=== PATIENT | male | born 1995 | race Caucasian/White ===

== ENCOUNTER 2022-09-14 11:43 | Emergency (ER) | payer OTHER, SELFPAY ==
[2022-09-14 12:01] VITALS: BP 138/85; PULSE 62; RESP 18; TEMP 36.8; O2SAT 99; BMI 30.7
[2022-09-14] MEDS: DEXAMETHASONE 10 MG/ML VIAL PO (12:17)
[2022-09-14] MEDS: FAMOTIDINE 20 MG TABLET PO (12:17)
--- NOTE | 2022-09-14 12:25 | ED_ITS ---
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 Patient states that he [place] the window was down and his arm was stung by a wasp. He states he had to pull it out and the head looked like a wasp head he is confident it was not a bee. He states that initially there was a raised area or welt in the center and shares a picture of this but states that it expanded out and the redness has increased to the point where it is now a large area of redness around the sting site. He states that it feels like there is a burning sensation in his forearm just underneath the skin around the area of the sting. He has taken 1 Benadryl but no other medications. Previously he has had localized similar reactions after being stung by bees, he has also had hives develop on his upper body with itching due to an unknown cause not from a bee sting the latter has happened multiple times and he says he has been seen in the emergency department for this and received IV steroid medicine due to significant hives and itching. He states he has never had any airway symptoms such as swelling of his tongue mouth or throat or lips or wheezing or shortness of breath, he also states he is never had any gastrointestinal distress such as vomiting nausea or diarrhea associated with allergic reactions. Currently he states he feels well he does not feel he is having any airway swelling tongue tingling, throat tightness, shortness of breath, respiratory symptoms or any GI symptoms. He has not noticed any itching or hives either. He denies any other complaints or concerns and states he would prefer not to be placed on prednisone unless absolutely necessary as it upsets his stomach. Related Data Allergies Allergy/AdvReac Type Severity Reaction Status Date / Time No Known Drug Allergies Allergy Verified 09/14/22 12:01 Review of Systems <Caitie Rhodes PA-C - Last Filed: 09/14/22 12:46> Review of Systems Narrative: See HPI Patient History <Caitie Rhodes PA-C - Last Filed: 09/14/22 12:46> Social History Smoking Status: Current every day smoker Smoking Status: Current every day smoker tobacco type: vaping alcohol intake frequency: 0-2 drinks per day Substance Use Type: marijuana Exam <Caitie Rhodes PA-C - Last Filed: 09/14/22 12:46> Narrative Exam Narrative: GENERAL: [26] year old patient appears stated age. Well-developed patient, in mild distress. HEAD: Atraumatic. Normocephalic. EYES: Pupils equal round and reactive. Extraocular motions intact. No scleral icterus. No injection or drainage. ENT: Nose without bleeding, purulent drainage. Throat without erythema, tonsillar hypertrophy or exudate. Airway patent. No erythema or angioedema. NECK: Trachea midline. Non tender, no stridor CARDIOVASCULAR: Regular rate and rhythm without murmurs, gallops, or rubs. RESPIRATORY: Clear to auscultation. Breath sounds equal bilaterally. No wheezes, rales, or rhonchi. GASTROINTESTINAL: Abdomen soft, non-tender, nondistended. EXTREMITIES: See skin No edema or joint tenderness. BACK: Nontender without deformity or crepitance. No flank tenderness. NEURO: AOx3. SKIN: There is a mildly erythematous raised region on the patient's anterior proximal forearm with a less than 1 mm central erythematous dot consistent with a sting location at the center of the raised area. Area of swelling and inflammation is proximally 4-5 cm in diameter. No other rash or erythema of visible areas, no rash or hives of chest or back or any other visible area Initial Vital Signs Initial Vital Signs: Vital Signs Temperature 98.3 F 09/14/22 12:01 Pulse Rate 62 09/14/22 12:01 Respiratory Rate 18 09/14/22 12:01 Blood Pressure 138/85 09/14/22 12:01 Pulse Oximetry 99 09/14/22 12:01 Oxygen Delivery Method Room Air 09/14/22 12:01 <Porter San MD - Last Filed: 09/14/22 12:52> Initial Vital Signs Initial Vital Signs: Vital Signs Temperature 98.3 F 09/14/22 12:01 Pulse Rate 62 09/14/22 12:01 Respiratory Rate 18 09/14/22 12:01 Blood Pressure 138/85 09/14/22 12:01 Pulse Oximetry 99 09/14/22 12:01 Oxygen Delivery Method Room Air 09/14/22 12:01 Course <Caitie Rhodes PA-C - Last Filed: 09/14/22 12:46> Orders Ordered: Discontinued Medications Dexamethasone (Dexamethasone 10 Mg/Ml Vial) 10 mg PO NOW ONE Stop: 09/14/22 12:11 Last Admin: 09/14/22 12:17 Dose: 10 mg Documented By: AMV Famotidine (Famotidine 20 Mg Tablet) 20 mg PO NOW ONE Stop: 09/14/22 12:12 Last Admin: 09/14/22 12:17 Dose: 20 mg Documented By: AMV Vital Signs Vital signs: Vital Signs - 8 hr 09/14/22 12:01 Temperature 98.3 F Pulse Rate 62 Respiratory Rate 18 Blood Pressure 138/85 Pulse Oximetry 99 Oxygen Delivery Method Room Air <Porter San MD - Last Filed: 09/14/22 12:52> Orders Ordered: Discontinued Medications Dexamethasone (Dexamethasone 10 Mg/Ml Vial) 10 mg PO NOW ONE Stop: 09/14/22 12:11 Last Admin: 09/14/22 12:17 Dose: 10 mg Documented By: AMV Famotidine (Famotidine 20 Mg Tablet) 20 mg PO NOW ONE Stop: 09/14/22 12:12 Last Admin: 09/14/22 12:17 Dose: 20 mg Documented By: AMV Vital Signs Vital signs: Vital Signs - 8 hr 09/14/22 12:01 Temperature 98.3 F Pulse Rate 62 Respiratory Rate 18 Blood Pressure 138/85 Pulse Oximetry 99 Oxygen Delivery Method Room Air MDM - Allergic Reaction <Caitie Rhodes PA-C - Last Filed: 09/14/22 12:46> Differential Diagnosis Differential diagnosis: Likely allergic reaction and other (Localized allergic reaction to insect sting) Treatment and Disposition Shared decision making:: Shared decision-making was used in determining plan of care for the patient in the emergency department plan for outpatient follow-up MDM Narrative Medical decision making narrative: 26-year-old male with history of localized allergic reaction to bee stings and 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 Patient took 1 oral Benadryl (25mg) approximately 1 hour ago, exam today is consistent with a localized aller gic reaction patient has no respiratory symptoms or GI symptoms he also has no hives or skin changes other than at the local site of the sting on the patient's forearm. Patient is given famotidine as well as oral dexamethasone today. Additional Benadryl is not administered as patient has to drive and he feels that the initial Benadryl he took is making him feel a little funny as he takes medicine for ADHD as well he prefers not to take additional Benadryl since he has to drive. Given patient's history and current symptoms do not think that further intervention is warranted, did discuss possibly placing the patient on steroid medication for few days however again I think this is unnecessary and patient disprefers this. He is advised to monitor carefully for new or worsening symptoms over the next 24 hours. Based on history there has been no definite anaphylaxis previously and certainly no anaphylactic reactions to insect stings--he has only ever had localized reactions to insect stings which is consistent with his reaction today. Return precautions provided, follow-up plan discussed, all questions answered. Discharge Plan Departure Patient Disposition: Home Clinical Impression: Allergic reaction, Sting, wasp Activity Restrictions/Additional Instructions: *You have been diagnosed with [localized allergic reaction to sting] *What to do: *Please continue to take your regular medications as directed. [ ] New medication prescriptions sent to your pharmacy: [ ] [ ] New medication written as a paper prescription [ X] No new medications given *Please follow up with your primary care provider in 2-3 days, call for an appointment. Let them know you were seen in the Emergency Department and that we ask that you be seen in follow up. We will electronically transmit a record of today's note if your PCP is in our system. Prior to arrival you did take some oral Benadryl, in the emergency department today we gave you famotidine which is another histamine hermes as well as dexamethasone which is a steroid medicine that will reduce inflammation and decrease your risk of having a worse or rebound reaction, based on your history and your exam findings today I think it is unlikely that you will develop worsening symptoms from the sting you sustained to her forearm. Of course it is very important that you monitor carefully if you do develop any shortness of breath wheezing swelling of your face throat or tongue or nausea vomiting or diarrhea please make sure that you get re-evaluated. In the absence of this expect he will do well you can consider putting ice over the area of the sting, and may want to try taking Tylenol or ibuprofen as well for your discomfort. *If you do not have a primary care provider please contact the [facility] Resource line at [phone]. They will ask some questions about your medical history and help get you set up with a doctor in the community. *Return to Emergency Department if you should have any new, worsening or concerning symptoms, such as [fever greater than 101 F, shaking chills, worsening pain, persistent vomiting or other bothersome symptoms] Referrals: Miscellaneous,[facility] [Primary Care Provider] - Stand Alone Forms: Patient Portal/API <Porter San MD - Last Filed: 09/14/22 12:52> Cosign ED Attending Cosrosaature Attestation: I was immediately available in the department for consultation. ?This documentation has been reviewed and I agree with assessment and plan. Supervised by Porter San MD
[2022-09-14 13:11] VITALS: BP 126/75; PULSE 50; RESP 16; O2SAT 99
== END 2022-09-14 13:11 | disposition home or self-care (01) ==
PROVIDERS: Emergency Provider Student in an Organized Health Care Education/Training Program
DX: T63.441A Toxic effect of venom of bees, accidental (unintentional), initial encounter (principal)
CPT/HCPCS: 99283; A9270; J1100